=== PATIENT | female | born 1980 | race African-American/Black ===

== ENCOUNTER 2017-02-03 17:23 | Emergency (ER) | payer OTHER ==
[~2017-02-03 17:23] MED LIST: BACTRIM DS TABL1 TAB PO; CELEXA PO; HCTZ PO; KEFLEX PO; KETOPROFEN PO; NORVASC PO; OMNICEF300 M1 PO; PERCOCET PO; PHENERGAN PO
== END 2017-02-03 21:26 | disposition home or self-care (01) ==
LOC: CED 17:23
DX: G43.909 Migraine, unspecified, not intractable, without status migrainosus (principal); F41.9 Anxiety disorder, unspecified; F17.200 Nicotine dependence, unspecified, uncomplicated; Z79.899 Other long term (current) drug therapy
CPT/HCPCS: 96372; 99283; J1885